=== PATIENT | female | born 1950 | race Two or more races ===

== ENCOUNTER 2018-08-17 14:48 | Emergency (ER) | payer OTHER ==
--- NOTE | 2018-08-17 14:52 | EDPHY ---
H & P Time Seen by Provider: 08/17/18 14:52 HPI/ROS: CHIEF COMPLAINT: Left flank pain HISTORY OF PRESENT ILLNESS: This is a 68-year-old female in general good health who presents with left flank pain that began yesterday. The pain is constant. She has tried appointment, Tylenol, and ibuprofen, but the pain persists. Pain radiates around to her left groin. She denies fever, vomiting, diarrhea, dysuria, and hematuria. She has no history of ureterolithiasis. REVIEW OF SYSTEMS: A ten system review of systems was performed and is negative with the exception of the items mentioned in the HPI. Past medical history: Thyroid surgery Past surgical history: Thyroid surgery Social history: Colombian-speaking only. No tobacco use. No alcohol use. General Appearance: Alert. Vital signs reviewed. Eyes: Pupils equal and round, no conjunctival injection, no discharge. Anicteric. ENT, Mouth: Mucous membranes are moist, no oropharyngeal erythema or edema. Neck: No lymphadenopathy, supple. Respiratory: Lungs are clear to auscultation; no wheezes, rales, or rhonchi. Cardiovascular: Regular rate and rhythm; no murmur, rub, or gallop. Gastrointestinal: Abdomen is soft and nontender, no masses or organomegaly, bowel sounds normal. Skin: Warm and dry, no rashes on exposed skin, normal color. Back: Nontender to palpation over the thoracolumbar spine. No CVAT. Extremities: No lower extremity edema, no calf tenderness or swelling. Neurological: Alert and oriented. Moving all four extremities easily and equally. Psychiatric: Normal affect. - Medical/Surgical History Hx Asthma: No Hx Chronic Respiratory Disease: No Hx Diabetes: No Hx Cardiac Disease: No Hx Renal Disease: No Hx Cirrhosis: No Hx Alcoholism: No Hx HIV/AIDS: No Other PMH: PSH:thyroidectomy 03/2015, tubal ligation. PMH: HTN, hypothyroidism - Social History Smoking Status: Never smoked Constitutional: Initial Vital Signs Temperature (C) 36.3 C 08/17/18 14:53 Heart Rate 58 L 08/17/18 14:53 Respiratory Rate 16 08/17/18 14:53 Blood Pressure 193/98 H 08/17/18 14:53 O2 Sat (%) 97 08/17/18 14:53 O2 Delivery Mode Room Air Allergies/Adverse Reactions: No Known Allergies Allergy (Unverified 04/03/15 19:04) Home Medications: Medication Instructions Recorded Albuterol [Proventil Inhaler HFA 2 puffs IH Q4 PRN #1 mdi 04/03/15 (*)] Levothyroxine [Synthroid] 25 mcg PO DAILY06 04/03/15 Medical Decision Making ED Course/Re-evaluation: 60-year-old female with left flank pain radiating into her groin. History is suggestive of kidney stone but on visual inspection she does not look like someone suffering from kidney stone pain. However she states that her pain is severe. She received 75 mcg of fentanyl initially and 1 L IV fluid. This was followed by Toradol 15 mg IV. She was re-evaluated at 4:15 p.m. at which time she states that she has not had much improvement in her pain. Urinalysis is partly resulted in shows 2+ blood. CT scan to assess for kidney stone is being performed. CT scan without contrast was performed and does not show nephrolithiasis or ureterolithiasis. No mass. UA shows only blood, nothing else abnormal. Nothing to suggest UTI or pyelonephritis. Following CT scan, on re-evaluation, her pain is almost completely gone. Abdomen is soft and nontender. The etiology of her pain remains unclear. Evaluation and results, discharge instructions, danger signs all reviewed with help of Colombian assistant speech language pathologist. Questions answered. Differential Diagnosis: Flank pain including but not limited to musculoskeletal causes, kidney stone, pyelonephritis, shingles, and intra-abdominal causes such as diverticulitis and appendicitis. - Data Points Laboratory Results: Laboratory Results 08/17/18 15:15 08/17/18 15:15 Medications Given: Discontinued Medications Fentanyl (Sublimaze) 75 mcg IVP EDNOW ONE Stop: 08/17/18 15:18 Last Admin: 08/17/18 15:25 Dose: 75 mcg Sodium Chloride (Ns) 1,000 mls @ 0 mls/hr IV EDNOW ONE; Wide Open PRN Reason: Protocol Stop: 08/17/18 14:58 Last Admin: 08/17/18 15:18 Dose: 1,000 mls Ketorolac Tromethamine (Toradol) 15 mg IVP EDNOW ONE Stop: 08/17/18 15:47 Last Admin: 08/17/18 16:04 Dose: 15 mg Departure - Departure Disposition: Home, Routine, Self-Care Clinical Impression: Abdominal pain Qualifiers: Abdominal location: left lower quadrant Qualified Code(s): R10.32 - Left lower quadrant pain Condition: Good Instructions: Acute Abdominal Pain (ED) Additional Instructions: Adult Pain & Fever Control: We recommend Acetaminophen (Tylenol) and Ibuprofen (Motrin,Advil) for pain and fever control. When fever is high or pain severe, both drugs can be used at the same time, but at different intervals. Please note the time differences. Your dose is: Acetaminophen 650mg every 4 to 6 hours Ibuprofen 400mg every 6 hours with food OR Note: do not take Acetaminophen with Hydrocodone (Vicodin, Lortab) or Oycodone (Percocet). These medications also contain Acetaminophen. No more than 3000mg of Acetaminophen should be taken in 24 hours (for an adult).Follow up with your doctor through the [facility]. As you know, we did not discover a cause for your abdominal pain. You had a CT scan done of your abdomen and pelvis. This study was normal. Your blood pressure was slightly high in the emergency department. You should have this rechecked by your primary care doctor. Control De Dolor y Fiebre: Les recomendamos Acetaminofina (Tylenol) y Ibuprofeno (Motrin, Advil) para dolor y control de la fiebre. Cuando la fiebre es sanchez o el dolor es amber, ambas drogas puede ser usadas a la misma vez. Por favor tenga en cuenta la diferencia de horarios en el cual deben ser tomadas. Bragg dosis es: Acetaminofina [650]mg cada 4-6 horas Ibuprofeno [400]mg cada 6 horas con comida No tome Acetaminofina con Hydrocodone (Vicodin, Lortab) o Oxycodone (Percocet. Estas medicinas tambien contienen Acetaminofina. No mas de 4000mg de Acetaminofina deben ser tomados en 24 horas. Bragg presion de la maral esta un poco elevada hoy en la eros de emergencia. [place] seguimiento con bragg doctor de leonel. Referrals: [facility] [Outside] - As per Instructions Print Language: Colombian
[2018-08-17] MEDS ORDERED: NS 1,000 ML IV ONE (14:57)
[2018-08-17] MEDS ORDERED: fentaNYL 100 MCG/2 ML INJ IVP ONE (15:17)
[2018-08-17 15:26] LABS: PLATELET COUNT 207 10^3/uL (150-400)
[2018-08-17] MEDS ORDERED: KETOROLAC 30 MG/1 ML SDV IVP ONE (15:46)
[2018-08-17 17:54] VITALS: BP 162/87
== END 2018-08-17 17:53 | disposition home or self-care (01) ==
LOC: EDUNIT#
DX: R10.32 Left lower quadrant pain (principal); I10 Essential (primary) hypertension; E03.9 Hypothyroidism, unspecified; E86.9 Volume depletion, unspecified
CPT/HCPCS: 74176; 96361; 96374; 96375; 99285; J1885; J3010